=== PATIENT | female | born 1950 | race Caucasian/White ===

== ENCOUNTER 2019-05-05 12:42 | Outpatient (CLI) | payer MEDICARE ==
--- NOTE | 2019-05-05 13:26 | MMO ---
Bilateral MAMMO Bilat Screen [facility]. CLINICAL HISTORY: Patient is 69 years old and is seen for screening. The patient has the following family history of breast cancer: maternal grandmother, malignant (generic). The patient has no personal history of cancer. VIEWS: The views performed were: bilateral craniocaudal with tomosynthesis and bilateral mediolateral oblique with tomosynthesis. FILMS COMPARED: The present examination has been compared to prior imaging studies performed at [facility] on 04/24/2013 and 05/05/2013, and at [facility] on 03/01/2016 and 04/18/2017. This study has been interpreted with the assistance of computer-aided detection. MAMMOGRAM FINDINGS: The breasts are almost entirely fat. There are no suspicious masses, suspicious calcifications, or new areas of architectural distortion. IMPRESSION: THERE IS NO MAMMOGRAPHIC EVIDENCE OF MALIGNANCY. A ROUTINE FOLLOW-UP MAMMOGRAM IN 1 YEAR IS RECOMMENDED. THE RESULTS OF THIS EXAM WERE SENT TO THE PATIENT. ACR BI-RADS Category 1 - Negative MAMMOGRAPHY NOTE: 1. A negative mammogram report should not delay a biopsy if a dominant of clinically suspicious mass is present. 2. Approximately 10% to 15% of breast cancers are not detected by mammography. 3. Adenosis and dense breasts may obscure an underlying neoplasm. Reported by: JENNIFER ANDERSON MD Electonically Signed: [id number]
--- NOTE | 2019-05-05 13:53 | BD ---
EXAM: DEXA bone density examination HISTORY: 69-year-old postmenopausal female for screening COMPARISON: None FINDINGS: L1--bone mineral density 0.871 g/sq cm; T score -1.1 L2--bone mineral density 1.014 g/sq cm; T score -0.1 L3--bone mineral density 1.104 g/sq cm; T score 0.2 L4--bone mineral density 1.178 g/sq cm; T score 1.1 Total L1-L4--bone mineral density 1.055 g/sq cm; T score 0.1 Left femoral neck--bone mineral density0.628; T score -2.0 Total proximal left femur--bone mineral density 0.877; T score -0.5 IMPRESSION: Osteopenia This patient has a 10 year WHO fracture risk of a major osteoporotic fracture of 11% and of a hip fracture of 2.0%.
== END 2019-05-05 12:43 | disposition home or self-care (01) ==
LOC: BICMAMMO 12:42
PROVIDERS: ATTEND Family Medicine
DX: Z12.31 Encounter for screening mammogram for malignant neoplasm of breast (principal); M85.89 Other specified disorders of bone density and structure, multiple sites
CPT/HCPCS: 77063; 77067; 77080

== ENCOUNTER 2021-07-05 12:17 | Outpatient (CLI) | payer MEDICARE, OTHER | END 2021-07-05 12:18 | disposition home or self-care (01) | LOC: BICMAMMO 12:17 | PROVIDERS: ATTEND Family Medicine | DX: Z12.31 Encounter for screening mammogram for malignant neoplasm of breast (principal); Z80.3 Family history of malignant neoplasm of breast | CPT/HCPCS: 77063; 77067 ==

== ENCOUNTER 2024-01-07 12:48 | Outpatient (CLI) | payer MEDICARE | END 2024-01-07 12:49 | disposition home or self-care (01) | LOC: BICMAMMO 12:48 | PROVIDERS: ATTEND Family Medicine | DX: Z12.31 Encounter for screening mammogram for malignant neoplasm of breast (principal); Z80.3 Family history of malignant neoplasm of breast | CPT/HCPCS: 77063; 77067 ==